=== PATIENT | male | born 1970 | race Caucasian/White ===

== ENCOUNTER → 2016-05-25 | Outpatient (REF) | payer BC | LOC: M SMT 15:10 | PROVIDERS: ATTEND Nurse Practitioner Women's Health | DX: N50.811 Right testicular pain (principal) ==

== ENCOUNTER → 2016-06-07 | Outpatient (CLI) | payer BC ==
[~2016-06-07] MED LIST: GASTROGRAFIN SOLUTION 30ML (Q9963) As Ordered ONE; ISOVUE-370 76% 100ML VIAL (Q9967) As Ordered ONE
--- NOTE | 2016-06-07 14:30 | REP ---
CT ABDOMEN AND PELVIS WITH AND WITHOUT CONTRAST: TECHNIQUE: Axial noncontrast images through the abdomen followed by contrast-enhanced images through the abdomen and pelvis using 100 mL Isovue 370 intravenous contrast material, with coronal and sagittal reformations. The visualized lung bases demonstrate no infiltrate or suspicious nodule. The liver, gallbladder, spleen, adrenals, pancreas and kidneys appear unremarkable with no mass. There is no hydronephrosis or nephrolithiasis. There is mild scattered atherosclerotic calcification of the abdominal aorta without aneurysm. There is no adenopathy. There is no free air or free fluid. There is no bowel wall thickening. There is no pelvic mass. The urinary bladder is mildly distended and grossly unremarkable. IMPRESSION: Essentially negative CT abdomen and pelvis as discussed above. Signed by Armen Brooks MD 06/07/2016 03:56 P
== END ==
LOC: M RAD 11:45
PROVIDERS: ATTEND Nurse Practitioner Women's Health
DX: N50.811 Right testicular pain (principal); Z85.47 Personal history of malignant neoplasm of testis; I86.1 Scrotal varices
CPT/HCPCS: 74178; Q9963; Q9967

== ENCOUNTER → 2016-07-14 | Day surgery (SDC) | payer BC ==
[~2016-07-14] VITALS: Ht 162.6 cm; Wt 94.3 kg
[~2016-07-14] MED LIST changes: +BACT800T5 PO; +BACTRIM 160MG/800MG DS TAB PO SCH; +BUPIVACAINE HCL 0.25% 30 ML VIAL As Ordered ONE; -GASTROGRAFIN SOLUTION 30ML (Q9963) As Ordered ONE; +GLYCOPYRROLATE INJ 0.2 MG/ML 2 ML VIAL As Ordered ONE; -ISOVUE-370 76% 100ML VIAL (Q9967) As Ordered ONE; +KETOROLAC 60 MG/2 ML VIAL (J1885) As Ordered ONE; +LIDOCAINE 1% SDV INJ 30 ML VIAL As Ordered ONE; +LIDOCAINE 2% INJ 100 MG/5 ML SDV (FOR ANES.) As Ordered ONE; +LR 1,000 ML IV ONE; +LR 1,000 ML IV SCH; +MIDAZOLAM INJ 2 MG/2 ML VIAL (J2250) As Ordered ONE; +MORPHINE 2 MG/ML 1ML SYRINGE IV PRN; +NEOSTIGMINE 1MG/ML 5 ML SYRINGE (J2710) As Ordered ONE; +ONDANSETRON 4MG/2ML VIAL (J2405) As Ordered ONE; +ONDANSETRON 4MG/2ML VIAL (J2405) IV PRN; +PERCOCET 5MG/325MG TAB PO PRN; +PERCOCET PO; +PROPOFOL 200 MG/20 ML VIAL As Ordered ONE; +RANI150T PO; +ROCURONIUM BROMIDE 50 MG/5 ML VIAL As Ordered ONE; +fentaNYL 100 MCG/2 ML INJECTION (J3010) As Ordered ONE; +fentaNYL 100 MCG/2 ML INJECTION (J3010) IV PRN
[2016-07-14 14:45] VITALS: BP 111/70
--- NOTE | 2016-07-15 13:33 | RO ---
DATE OF PROCEDURE: 07/14/2016 PREOPERATIVE DIAGNOSIS: Right varicocele. POSTOPERATIVE DIAGNOSIS: Right varicocele. PROCEDURE: Laparoscopic right varicocele repair. FINDINGS: Right varicocele. SURGEON: Dr. Lloyd Acosta. 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 ANESTHESIA: General. COMPLICATIONS: None. ESTIMATED BLOOD LOSS: Zero. HISTORY OF PRESENT ILLNESS: This is a 46-year-old male patient with a history of right testicular pain and right varicocele. For this reason, he has consented for a laparoscopic right varicocele repair. PROCEDURE DESCRIPTION: With patient under general anesthesia in supine position, after prepping and draping the abdomen and genitalia, we started by doing an incision infraumbilically, transverse for about 2 cm in length in the skin. Through this incision, we opened up the peritoneal cavity and placed a 12 mm balloon trocar and inflated and balloon trocar to 20 mL. Through this trocar we insufflated the abdomen with CO2 at a maximum pressure. We introduced a laparoscope 0 degrees and under direct vision under laparoscope 0 degree direct vision and videoscopic guidance, we actually placed the other trocars, 5 mm VersaStep trocar in the mid clavicular line in a fan shaped manner on the right side and 5 mm VersaStep trocar on the left side on the mid clavicular line. Through this 5 mm trocar, we manipulated on the left arm the left trocar, the monopolar scissors and the right trocar [place]. We then proceeded to identify the inguinal ring, Vas deferens and the gonadal vessels coming out from the internal inguinal ring. We grabbed the peritoneal bordering on top of the gonadal vessels with the [place] and cut the peritoneal on top of it and fulgurated and dissected the gonadal vessels up and down starting from the internal inguinal ring. Once we dissected, we grabbed the hemoclips large and clipped times three distally and proximally the gonadal vessels especially the gonadal vein. We then proceeded to actually cut the gonadal vein and take a strip of gonadal vein out for permanent pathology analysis. We secured hemostasis with fulguration and Monopolar scissors. We visualized the entire abdomen. There was no complications. No bleeding. We took out one by one the trocars. There was no bleeding from the trocar sites and then we took the laparoscope and took our 12 mm balloon trocar out. We then started closure with a UR-6 needle #2-0 Vicryl in a running fashion the peritoneum and closing the fascia also in separate stitches times six with UR-6 #2-0 Vicryl the external fascia of the rectus muscle. We then proceeded to close skin with #4-0 Monocryl in running fashion subcuticular stitches, placed Mastisol, Steri-Strips prior to placing local anesthesia. A mixture of lidocaine 1% and Marcaine 0.25% a total of 10 mL on each incision site. The incision sites were covered with 4x4's and 2x2s and Tegaderm. PLAN: The patient will go home today with antibiotic and pain medication. Followup at [facility] [place] in about 2 weeks.
== END ==
LOC: M SDC 08:18
PROVIDERS: ATTEND Urology
DX: I86.1 Scrotal varices (principal); N50.811 Right testicular pain; R12 Heartburn; M19.90 Unspecified osteoarthritis, unspecified site; Z85.47 Personal history of malignant neoplasm of testis; Z92.3 Personal history of irradiation; F17.221 Nicotine dependence, chewing tobacco, in remission; Z79.899 Other long term (current) drug therapy
CPT/HCPCS: 55550; 88302; J0690; J1885; J2250; J2405; J2710; J3010

== ENCOUNTER → 2022-04-30 | Outpatient (CLI) | payer BC ==
[~2022-04-30] MED LIST changes: -BACTRIM 160MG/800MG DS TAB PO SCH; -BUPIVACAINE HCL 0.25% 30 ML VIAL As Ordered ONE; -GLYCOPYRROLATE INJ 0.2 MG/ML 2 ML VIAL As Ordered ONE; -KETOROLAC 60 MG/2 ML VIAL (J1885) As Ordered ONE; -LIDOCAINE 1% SDV INJ 30 ML VIAL As Ordered ONE; -LIDOCAINE 2% INJ 100 MG/5 ML SDV (FOR ANES.) As Ordered ONE; -LR 1,000 ML IV ONE; -LR 1,000 ML IV SCH; -MIDAZOLAM INJ 2 MG/2 ML VIAL (J2250) As Ordered ONE; -MORPHINE 2 MG/ML 1ML SYRINGE IV PRN; -NEOSTIGMINE 1MG/ML 5 ML SYRINGE (J2710) As Ordered ONE; -ONDANSETRON 4MG/2ML VIAL (J2405) As Ordered ONE; -ONDANSETRON 4MG/2ML VIAL (J2405) IV PRN; -PERCOCET 5MG/325MG TAB PO PRN; -PROPOFOL 200 MG/20 ML VIAL As Ordered ONE; -ROCURONIUM BROMIDE 50 MG/5 ML VIAL As Ordered ONE; -fentaNYL 100 MCG/2 ML INJECTION (J3010) As Ordered ONE; -fentaNYL 100 MCG/2 ML INJECTION (J3010) IV PRN
== END ==
LOC: M RAD 07:44
PROVIDERS: ATTEND Orthopaedic Surgery
DX: M17.12 Unilateral primary osteoarthritis, left knee (principal)